=== PATIENT | male | born 1965 | race Caucasian/White ===

== ENCOUNTER 2019-11-25 19:31 | Inpatient (IN) | payer MEDICARE ==
--- NOTE | 2019-11-25 22:00 | XRay Report ---
Chest single view INDICATION: Dyspnea IMPRESSION: No acute cardiopulmonary abnormality. Signer Name: Ed Noriega MD Signed: 11/25/2019 9:55 PM Workstation Name: [id number]
[2019-11-25 22:23] LABS: Basophils # (Auto) 0.1 K/mm3 (0.0-0.1); Basophils % (Auto) 0.8 % (0.0-1.8); Eosinophils # (Auto) 0.6 K/mm3 (0.0-0.4); Eosinophils % (Auto) 6.3 % (0.0-4.3); Hematocrit 38.7 % (35.5-45.6); Hemoglobin 13.3 gm/dl (11.8-15.2); Lymphocytes # (Auto) 2.5 K/mm3 (1.2-5.4); Lymphocytes % (Auto) 24.3 % (13.4-35.0); Mean Corpuscular HGB Conc 34 % (32-34); Mean Corpuscular Volume 88 fl (84-94); Monocytes # (Auto) 0.4 K/mm3 (0.0-0.8); Monocytes % (Auto) 4.1 % (0.0-7.3); Platelet Count 241 K/mm3 (140-440); Red Blood Count 4.41 M/mm3 (3.65-5.03); Red Cell Distribution Width 14.1 % (13.2-15.2)
[2019-11-25 22:42] LABS: Calcium 10.3 mg/dL (8.4-10.2)
[2019-11-25] MEDS ORDERED: MECLIZINE 25 MG TAB PO ONE (23:28)
[2019-11-25] MEDS ORDERED: ONDANSETRON 4 MG ODT TAB PO ONE (23:28)
--- NOTE | 2019-11-25 23:44 | Emergency Department Report ---
ED General Adult HPI - General Chief complaint: Dizziness Stated complaint: DIZZINESS/JULIANN Time Seen by Provider: 11/25/19 22:53 Source: patient, EMS Mode of arrival: Wheelchair Limitations: Physical Limitation - History of Present Illness Initial comments: 54 yo male with a past medical history of previous CVA, hypertension, "heart problems", and chronic neuropathy causing him to require wheelchair assistance presents to the hospital with complaints of dizziness and shortness of breath. Patient is homeless. Pt is visiting from [place] because he wanted to check out [place]. He Arrived via bus several days ago. Patient states he has been short of breath for weeks but worse the last several days. Shortness of breath with movement reported. Patient also complains of ongoing dizziness described as a spinning sensation since his last stroke one month ago. States that the spinning is also getting worse with nausea. No vomiting reported. No pain reported. No hx of PE, DVT or MD/stent placement. Pt denies kidney issues. Patient is not currently taking any medications. Severity scale (0 -10): 0 - Related Data Allergies Allergy/AdvReac Type Severity Reaction Status Date / Time No Known Allergies Allergy Unverified 11/25/19 20:20 ED Review of Systems ROS: Stated complaint: DIZZINESS/JULIANN Other details as noted in HPI Comment: All other systems reviewed and negative ED Past Medical Hx - Past Medical History Previous Medical History?: Yes Hx Hypertension: Yes Hx CVA: Yes (x 2) Additional medical history: "Heart problems" Neuropathy in legs and feet that makes him immobile - Social History Smoking Status: Current Every Day Smoker Substance Use Type: None ED Physical Exam - General Limitations: Physical Limitation - Other Other exam information: General: No limitations, patient is alert in no acute distress Head exam: Atraumatic, normocephalic Eyes exam: Normal appearance, extraocular movements intact lateral visual chand intact. Bilateral lateral gaze nystagmus ENT: Moist mucous membrane Neck exam: Normal inspection, full range of motion Respiratory exam: Clear to auscultation bilateral, no wheezes, rales, crackles Cardiovascular: Normal rate and rhythm Abdomen: Soft, nondistended, and nontender, with normal bowel sounds, no rebound, or guarding, Extremity: No deformity, no calf tenderness or unilateral leg edema Back: Normal Inspection Neurologic: Alert, oriented x3, speech clear, 5/5 upper extremity strength. 5/5 hip flexor strength. Equal sensation bilaterally but decreased sensation at the feet. [id number] function intact equal bilateral Psychiatric: Normal mood, affect ED Course Vital Signs 11/25/19 20:43 Temperature 98.9 F Pulse Rate 95 H Respiratory 20 Rate Blood Pressure 187/106 [Left] O2 Sat by Pulse 98 Oximetry ED Medical Decision Making - Lab Data Result diagrams: 11/25/19 22:02 11/25/19 22:02 Lab Results 11/25/19 11/25/19 11/26/19 Range/Units 22:02 22: 00:03 WBC 10.2 (4.5-11.0) K/mm3 RBC 4.41 (3.65-5.03) M/mm3 Hgb 13.3 (11.8-15.2) gm/dl Hct 38.7 (35.5-45.6) % MCV 88 (84-94) fl MCH 30 (28-32) pg MCHC 34 (32-34) % RDW 14.1 (13.2-15.2) % Plt Count 241 (140-440) K/mm3 Lymph % (Auto) 24.3 (13.4-35.0) % [place] % (Auto) 4.1 (0.0-7.3) % Eos % (Auto) 6.3 H (0.0-4.3) % Baso % (Auto) 0.8 (0.0-1.8) % Lymph # 2.5 (1.2-5.4) K/mm3 [place] # 0.4 (0.0-0.8) K/mm3 Eos # 0.6 H (0.0-0.4) K/mm3 Baso # 0.1 (0.0-0.1) K/mm3 Seg Neutrophils % 64.5 (40.0-70.0) % Seg Neutrophils # 6.6 (1.8-7.7) K/mm3 D-Dimer 356.08 H (0-234) ng/mlDDU Sodium 138 (137-145) mmol/L Potassium 4.2 (3.6-5.0) mmol/L Chloride 99.5 (98-107) mmol/L Carbon Dioxide 23 (22-30) mmol/L Anion Gap 20 mmol/L BUN 44 H (9-20) mg/dL Creatinine 4.5 H (0.8-1.5) mg/dL Estimated GFR 14 ml/min BUN/Creatinine Ratio 10 % Glucose 180 H (75-100) mg/dL Calcium 10.3 H (8.4-10.2) mg/dL Total Bilirubin 0.20 (0.1-1.2) mg/dL AST 12 (5-40) units/L ALT 5 L (7-56) units/L Alkaline Phosphatase 121 (35-129) units/L Total Protein 7.5 (6.3-8.2) g/dL Albumin 4.0 (3.9-5) g/dL Albumin/Globulin Ratio 1.1 % - EKG Data -: EKG Interpreted by Nm EKG shows normal: sinus rhythm, ST-T waves (no stemi) Rate: normal (99) - Radiology Data Radiology results: report reviewed Chest single view INDICATION: Dyspnea IMPRESSION: No acute cardiopulmonary abnormality. CT head without contrast HISTORY: dizziness/vertigo, hx of cva. TECHNIQUE: Axial imaging performed from the skull apex through the skull base without the use of contrast. All CT scans at this location are performed using CT dose reduction for ALARA by means of automated exposure control. COMPARISON: None FINDINGS: Parenchyma: No acute intracranial hemorrhage or parenchymal abnormality. There is a well-defined area of low-attenuation in the left cerebellum suggesting subacute to chronic infarct. Ventricles: There is mild diffuse brain atrophy with commensurate ventricular enlargement which is likely age appropriate. Soft tissues: Soft tissues including the orbits appear normal. Bones: No acute osseous abnormality. Sinuses: Sinuses and mastoid air cells are clear. IMPRESSION: No acute abnormality. V/Q Scan HISTORY: sob, elevated ddimer. TECHNIQUE: Patient was given 3 mCi of technetium MAA and 22.7 mCi of xenon-133. COMPARISON: Chest x-ray from yesterday FINDINGS: No mismatch between ventilation and perfusion imaging. IMPRESSION: Low probability for PTE. - Medical Decision Making Patient has noted to have renal insufficiency without acid-base disturbance or hyperkalemia but insists that he does not have a known history of renal failure despite recent hospitalization last month. NS IV ordered for hydration. Pt states he is not on any meds currently despite his chronic medical problems. Pt received meclizine for vertigo sx but pt states sx unchanged. ct head unremarkable. Elevated ddimer with sob reported (normal pulse ox and not tachypnea) VQ scan low prob for PE and cxr neg. I suspect that renal failure and neuro sx are chronic but I can not confirm via medical records at this time. Case d/w with hospitalist to admit - Differential Diagnosis vertigo, CVA, PE, anemia, reactive airway disease Critical Care Time: No Critical care attestation.: If time is entered above; I have spent that time in minutes in the direct care of this critically ill patient, excluding procedure time. ED Disposition Clinical Impression: Vertigo, Renal insufficiency, Uncontrolled hypertension, Wheelchair dependent, Neuropathy Disposition: OP ADMIT IP TO THIS HOSP Is pt being admited?: Yes Condition: Stable Time of Disposition: 02:53 (Dr Colon/hosp)
--- NOTE | 2019-11-26 00:02 | Cat Scan Report ---
CT head without contrast HISTORY: dizziness/vertigo, hx of cva. TECHNIQUE: Axial imaging performed from the skull apex through the skull base without the use of con trast. All CT scans at this location are performed using CT dose reduction for ALARA by means of aut omated exposure control. COMPARISON: None FINDINGS: Parenchyma: No acute intracranial hemorrhage or parenchymal abnormality. There is a well-defined are a of low-attenuation in the left cerebellum suggesting subacute to chronic infarct. Ventricles: There is mild diffuse brain atrophy with commensurate ventricular enlargement which is l ikely age appropriate. Soft tissues: Soft tissues including the orbits appear normal. Bones: No acute osseous abnormality. Sinuses: Sinuses and mastoid air cells are clear. IMPRESSION: No acute abnormality. Signer Name: Pb Ayers MD Signed: 11/25/2019 11:58 PM Workstation Name: [id number]
[2019-11-26] MEDS ORDERED: SODIUM CHLORIDE 0.9% 1000 ML 1,000 ML IV ONE ×2 (02:37→09:38)
--- NOTE | 2019-11-26 02:44 | Nuclear Medicine Report ---
V/Q Scan HISTORY: sob, elevated ddimer. TECHNIQUE: Patient was given 3 mCi of technetium MAA and 22.7 mCi of xenon-133. COMPARISON: Chest x-ray from yesterday FINDINGS: No mismatch between ventilation and perfusion imaging. IMPRESSION: Low probability for PTE. Signer Name: Pb Ayers MD Signed: 11/26/2019 2:40 AM Workstation Name: [id number]
[2019-11-26] MEDS ORDERED: ONDANSETRON 4 MG ODT TAB ONE (03:04)
[2019-11-26] MEDS ORDERED: MECLIZINE 25 MG TAB ONE (03:04)
[2019-11-26] MEDS ORDERED: ACETAMINOPHEN 325 MG TAB PO PRN (03:25)
[2019-11-26] MEDS ORDERED: ONDANSETRON 4 MG/2 ML INJ IV PRN (03:25)
--- NOTE | 2019-11-26 03:25 | History and Physical Report ---
History of Present Illness History of present illness: 54-year-old man with a history of hypertension, CVA, chronic neuropathy and he is wheelchair-bound comes emergency room with complaints of shortness of breath x3 days. He stated short of breath all the time, especially with activity. He has been having dizziness since the last stroke which is more than a month ago. As recent travel from [place], he is homeless. Patient has been admitted for acute renal failure Review of systems Constitutional: no fever, no chills, no weight loss Ears, eyes, nose, mouth and throat: no nasal congestion, no nasal discharge, no sinus pressure, no vision change, no red eye. Neck: No neck pain or rigidity. Cardiovascular: no orthopnea, palpitations, no leg swelling Respiratory: No cough, no congestion, no wheezing Gastrointestinal: abdominal pain, hematochezia Genitourinary : no dysuria, frequency , no hematuria Musculoskeletal: no joint swelling or muscle ache Integumentary: no rash, no pruritis Neurological: no parathesias, no numbness, no focal weakness Endocrine: no cold or heat intolerance, no polyuria or polydipsia Hematologic/Lymphatic: no easy bruising, no easy bleeding, no gland swelling Allergic/Immunologic: no urticaria, no angioedema. PAST MEDICAL HISTORY: CVA, chronic neuropathy, hypertension PAST SURGICAL HISTORY: None SOCIAL HISTORY: Denies alcohol, tobacco, smoke a pack in couple days FAMILY HISTORY: Hypertension, diabetes Medications and Allergies Allergies Allergy/AdvReac Type Severity Reaction Status Date / Time No Known Allergies Allergy Verified 11/26/19 03:05 Active Meds: Active Medications Enoxaparin Sodium (Enoxaparin) 30 mg SUB-Q QDAY USAMA Sodium Chloride (Nacl 0.9% 1000 Ml) 1,000 mls @ 250 mls/hr IV ONCE ONE Stop: 11/26/19 06:36 Last Admin: 11/26/19 03:01 Dose: 250 mls/hr Documented by: Exam - Physical Exam Narrative exam: Gen. appearance: Patient lying in bed, no apparent distress HEENT: Normocephalic, atraumatic, pupils equally round and reactive to light, eyes are , extraocular movement intact, and no sclericterus,. No JVD or thyromegaly or nodule,neck supple, no carotid bruit ,mucous membranes moist, no exudate or erythema Heart: S1, S2, regular rate and rhythm Lungs: Clear bilaterally, breathing comfortable Abdomen: Positive bowel sounds, non-tender, nondistended, no organomegaly Extremity:no edema cyanosis, clubbing Skin: no rash, dry, warm Neuro: Cranial nerves 2-12 intact, motor and sensory intact - Constitutional Vitals: Temp Pulse Resp BP Pulse Ox 98.9 F 81 18 182/106 97 11/26/19 02:55 11/26/19 02:55 11/26/19 02:55 11/26/19 02:55 11/26/19 02:55 Results - Labs CBC & Chem 7: 11/25/19 22:02 11/25/19 22:02 Labs: Abnormal lab results 11/25/19 11/25/19 11/26/19 Range/Units 22:02 22:02 00:03 Eos % (Auto) 6.3 H (0.0-4.3) % Eos # 0.6 H (0.0-0.4) K/mm3 D-Dimer 356.08 H (0-234) ng/mlDDU BUN 44 H (9-20) mg/dL Creatinine 4.5 H (0.8-1.5) mg/dL Glucose 180 H (75-100) mg/dL Calcium 10.3 H (8.4-10.2) mg/dL ALT 5 L (7-56) units/L - Imaging and Cardiology EKG: image reviewed Chest x-ray: report reviewed CT Scan - head: report reviewed Assessment and Plan VQ low probability Assessment Acute renal failure Start IV fluid, check ultrasound of the kidneys, consult renal Patient denies previous renal history Shortness of breath Check cardiac enzymes, echo, consult cardiology Hypertension, stable Continue appropriate outpatient medications CVA, chronic neuropathy Stable Consult social services technician for placement
[2019-11-26] MEDS ORDERED: SODIUM CHLORIDE 0.45% 1000 ML 1,000 ML IV SCH (04:00)
[2019-11-26 04:13] LABS: Creatine Kinase MB 2.4 ng/mL (0.0-4.0)
--- NOTE | 2019-11-26 04:36 | Ultrasound Report ---
ULTRASOUND RENAL INDICATION / CLINICAL INFORMATION: arf. COMPARISON: None available. FINDINGS: RIGHT KIDNEY: Length = 12.3 cm. [normal > 9 cm] - Parenchymal Thickness = 1.9 cm. [normal > 1.5 cm] - Echogenicity: Normal. - Hydronephrosis: None. - Cyst or mass: No significant abnormality. - Stones: None seen. LEFT KIDNEY: Length = 12.1 cm. [normal > 9 cm] - Parenchymal Thickness = 1.7 cm. [normal > 1.5 cm] - Echogenicity: Normal. - Hydronephrosis: None. - Cyst or mass: No significant abnormality. - Stones: None seen. URINARY BLADDER: No significant abnormality. FREE FLUID: None. ADDITIONAL FINDINGS: None. IMPRESSION: 1. No significant abnormality. Signer Name: Pb Ayers MD Signed: 11/26/2019 4:32 AM Workstation Name: [id number]
[2019-11-26 04:47] LABS: Chol/HDL Ratio 4.16 %
[2019-11-26 08:30] LABS: Basophils # (Auto) 0.1 K/mm3 (0.0-0.1); Basophils % (Auto) 0.6 % (0.0-1.8); Eosinophils # (Auto) 0.7 K/mm3 (0.0-0.4); Eosinophils % (Auto) 8.1 % (0.0-4.3); Lymphocytes % (Auto) 35.4 % (13.4-35.0); Mean Corpuscular HGB Conc 35 % (32-34); Mean Corpuscular Volume 89 fl (84-94); Monocytes # (Auto) 0.6 K/mm3 (0.0-0.8); Monocytes % (Auto) 7.2 % (0.0-7.3); Platelet Count 216 K/mm3 (140-440); Red Blood Count 4.17 M/mm3 (3.65-5.03); Red Cell Distribution Width 14.3 % (13.2-15.2)
[2019-11-26 08:46] LABS: Creatine Kinase MB 2.5 ng/mL (0.0-4.0)
[2019-11-26 08:52] LABS: Calcium 9.6 mg/dL (8.4-10.2)
[2019-11-26] MEDS ORDERED: SODIUM CHLORIDE 0.9% 1000 ML 1,000 ML ONE (10:15)
[2019-11-26] MEDS: ENOXAPARIN 30 MG/0.3 ML INJ SUB-Q SCH (11:05)
--- NOTE | 2019-11-26 11:11 | Consultation ---
History of Present Illness - Reason for Consult end stage renal disease - History of Present Illness 54-year-old with no medical history here from [place] apparently homeless presented to the emergency room with complaint of shortness of breath and dizziness denies any known previous history of kidney disease denies any decreased urine output denies any fevers chills abdominal pain. Patient's lab significant for elevated creatinine Medications and Allergies Allergies Allergy/AdvReac Type Severity Reaction Status Date / Time No Known Allergies Allergy Verified 11/26/19 03:05 Active Meds: Active Medications Acetaminophen (Tylenol) 650 mg PO Q4H PRN PRN Reason: Pain MILD(1-3)/Fever >100.5/SAEZ Enoxaparin Sodium (Enoxaparin) 30 mg SUB-Q QDAY USAMA Sodium Chloride (Nacl 0.45% 1000 Ml) 1,000 mls @ 150 mls/hr IV DIRECT USAMA Sodium Chloride (Nacl 0.9% 1000 Ml) 1,000 mls @ 150 mls/hr IV ONCE ONE Stop: 11/26/19 16:17 Last Admin: 11/26/19 10:22 Dose: 150 mls/hr Documented by: Ondansetron HCl (Zofran) 4 mg IV Q8H PRN PRN Reason: Nausea And Vomiting Sodium Chloride (Sodium Chloride Flush Syringe 10 Ml) 10 ml IV BID USAMA Sodium Chloride (Sodium Chloride Flush Syringe 10 Ml) 10 ml IV PRN PRN PRN Reason: LINE FLUSH Review of Systems Constitutional: no weight loss, no weight gain, no fever, no chills Ears, nose, mouth and throat: no deferred, no ear pain, no ear discharge Cardiovascular: shortness of breath, no chest pain, no orthopnea, no palpitations Respiratory: no cough, no cough with sputum Gastrointestinal: no abdominal pain, no nausea, no vomiting Genitourinary Male: no dysuria, no hematuria Rectal: no pain, no incontinence Musculoskeletal: no neck stiffness, no neck pain Integumentary: no rash Neurological: no head injury, no transient paralysis Psychiatric: no anxiety, no memory loss Endocrine: no cold intolerance, no heat intolerance Hematologic/Lymphatic: no easy bruising, no easy bleeding Exam - Vital Signs Vital signs: Vital Signs Temp Pulse Resp BP Pulse Ox 98.9 F 95 H 20 187/106 98 11/25/19 20:43 11/25/19 20:43 11/25/19 20:43 11/25/19 20:43 11/25/19 20:43 - General Appearance General appearance: well-developed, well-nourished EENT: ATNC, PERRL Neck: Present: neck supple Respiratory: Clear to Ascultation Heart: regular, S1S2 Gastrointestinal: Present: normal, normoactive bowel sounds Integumentary: no rash Neurologic: no focal deficit, CN 3-12 intact Musculoskeletal: Present: deferred Psychiatric: mood/affect appropriate Results - Lab Results 11/26/19 08:19 11/26/19 08:19 Most recent lab results Calcium 9.6 mg/dL (8.4-10.2) 11/26/19 08:19 - Image Kidney/bladder ultrasound: other (i reviewed renal ultrasound normal-sized kidney) Assessment and Plan - Patient Problems (1) Acute kidney injury Current Visit: Yes Status: Acute Plan to address problem: acute kidney injury Baseline creatinine unknown I reviewed renal ultrasound normal-sized kidneys Etiology secondary to volume depletion However likely has nderlying chronic kidney disease given uncontrolled hypertension we'll initiate fluids Will obtain serologies avoid nephrotoxic medications (2) Uncontrolled hypertension Current Visit: Yes Status: Acute Plan to address problem: uncontrolled hypertension Oral antihypertensive medications (3) Metabolic acidosis Current Visit: Yes Status: Acute Plan to address problem: metabolic acidosis in the setting of acute kidney injury we'll add sodium bicarbonate (4) Dyspnea Current Visit: Yes Status: Acute Plan to address problem: I agree with obtaining echocardiogram Chest x-ray without pulmonary edema
--- NOTE | 2019-11-26 11:57 | Consultation ---
History of Present Illness Consult date: 11/26/19 Requesting physician: CARTER MARCANO Consult reason: congestive heart failure History of present illness: The pt is a 54 yo male with a past medical history of previous CVA, hypertension, "heart problems", and chronic neuropathy causing him to require wheelchair. He presented with c/o dizziness and shortness of breath. Patient is currently homeless. Pt is visiting from [place] because he wanted to check out [place]. He arrived via bus several days ago. Patient states he has been short of breath for weeks but worse the last several days. Shortness of breath with movement reported. Patient also complains of ongoing dizziness described as a spinning sensation since his last stroke one month ago. States that the spinning is also getting worse with nausea. No vomiting reported. No pain reported. No hx of PE, DVT or LA/stent placement. Pt denies kidney issues. Patient is not currently taking any medications. Pt does report that he has not been eating or drinking much in the past few days and believes he is dehydrated. Past History Past Medical History: hypertension, stroke Medications and Allergies Allergies Allergy/AdvReac Type Severity Reaction Status Date / Time No Known Allergies Allergy Verified 11/26/19 03:05 Active Meds: Active Medications Acetaminophen (Tylenol) 650 mg PO Q4H PRN PRN Reason: Pain MILD(1-3)/Fever >100.5/SAEZ Enoxaparin Sodium (Enoxaparin) 30 mg SUB-Q QDAY USAMA Sodium Chloride (Nacl 0.45% 1000 Ml) 1,000 mls @ 150 mls/hr IV DIRECT USAMA Sodium Chloride (Nacl 0.9% 1000 Ml) 1,000 mls @ 150 mls/hr IV ONCE ONE Stop: 11/26/19 16:17 Last Admin: 11/26/19 10:22 Dose: 150 mls/hr Documented by: Ondansetron HCl (Zofran) 4 mg IV Q8H PRN PRN Reason: Nausea And Vomiting Sodium Bicarbonate (Sodium Bicarbonate) 1,300 mg PO BID USAMA Sodium Chloride (Sodium Chloride Flush Syringe 10 Ml) 10 ml IV BID USAMA Sodium Chloride (Sodium Chloride Flush Syringe 10 Ml) 10 ml IV PRN PRN PRN Reason: LINE FLUSH Review of Systems Constitutional: no weight loss, no weight gain, no fever, no chills, no sweats Ears, nose, mouth and throat: no ear pain, no nose pain, no sinus pressure, no sinus pain Cardiovascular: lightheadedness, high blood pressure, no chest pain, no orthopnea, no palpitations, no rapid/irregular heart beat, no edema, no syncope, no shortness of breath, no dyspnea on exertion, no leg edema Respiratory: no cough, no shortness of breath, no congestion, no wheezing, no pain on inspiration Gastrointestinal: no abdominal pain, no nausea, no vomiting, no diarrhea, no constipation, no change in bowel habits Genitourinary Male: no dysuria, no hematuria, no flank pain, no discharge, no urinary frequency, no urinary hesitancy Musculoskeletal: no neck stiffness, no neck pain, no shooting arm pain, no arm numbness/tingling, no low back pain Integumentary: no rash, no pruritis, no redness, no sores, no wounds Neurological: no head injury, no paralysis, no weakness, no parathesias, no numbness, no tingling, no seizures, no syncope Psychiatric: no anxiety Endocrine: no cold intolerance, no heat intolerance Hematologic/Lymphatic: no easy bruising, no easy bleeding Allergic/Immunologic: no urticaria Physical Examination Vital Signs Temp Pulse Resp BP Pulse Ox 98.9 F 95 H 20 187/106 98 11/25/19 20:43 11/25/19 20:43 11/25/19 20:43 11/25/19 20:43 11/25/19 20:43 General appearance: no acute distress HEENT: Positive: PERRL, Normocephaly, Mucus Membranes Moist Neck: Positive: neck supple, trachea midline Cardiac: Positive: Reg Rate and Rhythm, S1/S2 Lungs: Positive: Decreased Breath Sounds Neuro: Positive: Grossly Intact Abdomen: Negative: Tender Skin: Negative: Rash Musculoskeletal: No Pain Extremities: Absent: edema Results 11/26/19 08:19 11/26/19 08:19 Cardiac Enzymes 11/25/19 11/26/19 11/26/19 Range/Units 22:02 03:41 08:19 AST 12 (5-40) units/L CK-MB (CK-2) 2.4 2.5 (0.0-4.0) ng/mL Lipids 11/26/19 Range/Units 03:41 Triglycerides 175 H (2-149) mg/dL Cholesterol 125 (50-199) mg/dL HDL Cholesterol 30 L (40-59) mg/dL Cholesterol/HDL Ratio 4.16 % CBC 11/25/19 11/26/19 Range/Units 22:02 08:19 WBC 10.2 8.4 (4.5-11.0) K/mm3 RBC 4.41 4.17 (3.65-5.03) M/mm3 Hgb 13.3 13.0 (11.8-15.2) gm/dl Hct 38.7 37.0 (35.5-45.6) % Plt Count 241 216 (140-440) K/mm3 Lymph # 2.5 3.0 (1.2-5.4) K/mm3 [place] # 0.4 0.6 (0.0-0.8) K/mm3 Eos # 0.6 H 0.7 H (0.0-0.4) K/mm3 Baso # 0.1 0.1 (0.0-0.1) K/mm3 Comprehensive Metabolic Panel 11/25/19 11/26/19 Range/Units 22:02 08:19 Sodium 138 143 (137-145) mmol/L Potassium 4.2 4.2 (3.6-5.0) mmol/L Chloride 99.5 107.0 (98-107) mmol/L Carbon Dioxide 23 20 L (22-30) mmol/L BUN 44 H 43 H (9-20) mg/dL Creatinine 4.5 H 4.1 H (0.8-1.5) mg/dL Glucose 180 H 107 H (75-100) mg/dL Calcium 10.3 H 9.6 (8.4-10.2) mg/dL AST 12 (5-40) units/L ALT 5 L (7-56) units/L Alkaline Phosphatase 121 (35-129) units/L Total Protein 7.5 (6.3-8.2) g/dL Albumin 4.0 (3.9-5) g/dL - Imaging and Cardiology Echo: pending EKG: report reviewed, image reviewed EKG interpretations - Telemetry EKG Rhythm: Sinus Rhythm - EKG Sinus rhythms and dysrhythmias: sinus rhythm Assessment and Plan DDimer elevated - V/Q scan low prob for PE. Head CT with NAF. No apparent clinical evidence of acutely decompensated HF. Agree with IVF in setting of renal insufficiency. Nephrology consultation pending. Obtain echo and orthostatics. Optimize anti-hypertensive regimen. Will follow. The patient has been seen in conjunction with Dr. Kumar who agrees with the assessment and plan of care. - Patient Problems (1) Dyspnea Current Visit: Yes Status: Acute (2) Vertigo Current Visit: Yes Status: Suspected (3) Renal insufficiency Current Visit: Yes Status: Acute (4) Dehydration Current Visit: Yes Status: Acute (5) Uncontrolled hypertension Current Visit: Yes Status: Chronic (6) History of CVA (cerebrovascular accident) Current Visit: Yes Status: Chronic (7) Neuropathy Current Visit: Yes Status: Chronic (8) Wheelchair dependent Current Visit: Yes Status: Chronic
[2019-11-26] MEDS: SODIUM BICARBONATE 650 MG TAB PO SCH ×2 (12:34→21:03)
[2019-11-26] MEDS ORDERED: METOPROLOL SUCCINATE XL 50 MG TAB PO SCH (13:00)
--- NOTE | 2019-11-26 16:40 | Event Note ---
Date: 11/26/19 54-year-old male patient with history of hypertension CVA chronic neuropathy wheelchair bound was admitted through emergency room with worsening shortness of breath of 3 days' durationPatient was noted to have acute kidney injury fluid overload and shortness of breath, evaluated by cardiology and nephrology in consultation Patient's chart and medications reviewed, agree with the current management VQ scan low probability for PE, check lower extremity venous Doppler to rule out DVT Closely monitor and adjust management as needed Plan of care is reviewed with the patient and his nurse
[2019-11-26] MEDS ORDERED: hydrALAZINE 20 MG/1 ML INJ IV PRN (20:56)
[2019-11-27 06:25] LABS: Calcium 8.6 mg/dL (8.4-10.2)
[2019-11-27] MEDS ORDERED: SODIUM CHLORIDE 0.9% 1000 ML 1,000 ML IV SCH (09:00)
[2019-11-27] MEDS ORDERED: METOPROLOL SUCCINATE XL 50 MG TAB PO SCH (09:17)
[2019-11-27] MEDS: ENOXAPARIN 30 MG/0.3 ML INJ SUB-Q SCH (09:18)
[2019-11-27] MEDS: SODIUM BICARBONATE 650 MG TAB PO SCH (09:19)
[2019-11-27] MEDS ORDERED: amLODIPine 10 MG TAB PO SCH (10:00)
[2019-11-27] MEDS ORDERED: METOPROLOL SUCCINATE XL 100 MG TAB PO SCH (10:00)
--- NOTE | 2019-11-27 10:34 | XRay Report ---
CHEST 1 VIEW INDICATION: Acute kidney injury. COMPARISON: 11/25/2019 FINDINGS: Support devices: None. Heart: Within normal limits. Lungs/Pleura: No acute air space or interstitial disease. Additional findings: None. IMPRESSION: No acute findings. Signer Name: Chin Reeevs Jr, MD Signed: 11/27/2019 10:29 AM Workstation Name: [id number]
[2019-11-27 10:44] VITALS: BP 186/97
--- NOTE | 2019-11-27 12:35 | Vascular Lab Report ---
DUPLEX DOPPLER LOWER EXTREMITY VEINS, BILATERAL INDICATION: elevated D dimers, evaluate for DVT. TECHNIQUE: Duplex doppler imaging was performed through the veins of both lower extremities using ve nous compression and other maneuvers. COMPARISON: No relevant prior imaging study available. FINDINGS: Right Common femoral vein: Negative. Right Superficial femoral vein: Negative. Right Popliteal vein: Negative. Right Calf veins: Negative. Left Common femoral vein: Negative. Left Superficial femoral vein: Negative. Left Popliteal vein: Negative. Left Calf veins: Negative. Additional findings: None.. IMPRESSION: No sonographic evidence for DVT in either lower extremity. Signer Name: Chin Reeves Jr, MD Signed: 11/27/2019 12:31 PM Workstation Name: [id number]
[2019-11-27 13:08] LABS: Bacteria,Urine 1+ /HPF (Negative); Bilirubin,Urine NEG (Negative); Blood,Urine NEG (Negative); Color,Urine Yellow (Yellow); Mucus,Urine FEW /HPF; Urobilinogen,Urine < 2.0 mg/dL (<2.0)
--- NOTE | 2019-11-27 13:18 | Progress Note ---
Assessment and Plan DDimer elevated - V/Q scan low prob for PE. Head CT with NAF. No apparent clinical evidence of acutely decompensated HF. Agree with IVF in setting of renal insufficiency. Nephrology following. Await echo. Obtain orthostatics. Optimize anti-hypertensive regimen - increase Toprol and initiate amlodipine. The patient has been seen in conjunction with Dr. Kumar who agrees with the assessment and plan of care. - Patient Problems (1) Dyspnea Current Visit: Yes Status: Acute (2) Dizziness Current Visit: Yes Status: Acute (3) Renal insufficiency Current Visit: Yes Status: Acute (4) Dehydration Current Visit: Yes Status: Acute (5) Uncontrolled hypertension Current Visit: Yes Status: Chronic (6) History of CVA (cerebrovascular accident) Current Visit: Yes Status: Chronic (7) Neuropathy Current Visit: Yes Status: Chronic (8) Wheelchair dependent Current Visit: Yes Status: Chronic Subjective Date of service: 11/27/19 Principal diagnosis: dyspnea, dizziness Interval history: pt still with c/o dizziness and SOB. in SR on tele, no acute events overnight. Objective Last Vital Signs Temp 97.8 F 11/27/19 03:32 Pulse 84 11/27/19 10:43 Resp 18 11/27/19 03:32 BP 186/97 11/27/19 10:43 Pulse Ox 97 11/27/19 08:51 - Physical Examination General: No Apparent Distress HEENT: Positive: PERRL, Normocephaly, Mucus Membranes Moist Neck: Positive: neck supple, trachea midline Cardiac: Positive: Reg Rate and Rhythm, S1/S2 Lungs: Positive: Decreased Breath Sounds Neuro: Positive: Grossly Intact Abdomen: Negative: Tender Skin: Negative: Rash Musculoskeletal: No Pain Extremities: Absent: edema - Labs and Meds Comprehensive Metabolic Panel 11/27/19 Range/Units 05:16 Sodium 142 (137-145) mmol/L Potassium 3.9 (3.6-5.0) mmol/L Chloride 108.6 H (98-107) mmol/L Carbon Dioxide 21 L (22-30) mmol/L BUN 36 H (9-20) mg/dL Creatinine 4.1 H (0.8-1.5) mg/dL Glucose 117 H (75-100) mg/dL Calcium 8.6 (8.4-10.2) mg/dL - Imaging and Cardiology EKG: report reviewed, image reviewed Echo: pending - Telemetry EKG Rhythm: Sinus Rhythm - EKG Sinus rhythms and dysrhythmias: sinus rhythm
--- NOTE | 2019-11-27 15:32 | Discharge Summary ---
Providers - Providers Date of Admission: 11/26/19 03:14 Attending physician: JASIEL RICHARDS 11/26/19 03:25 Consult to Physician [CONS] Routine Comment: Consulting Provider: THERESA ALTMAN Physician Instructions: Reason For Exam: arf 11/26/19 03:29 Consult to Physician [CONS] Routine Comment: Consulting Provider: CHERY RIZVI Physician Instructions: Reason For Exam: sob [facility] Hospital[facility] Condition: Stable Hospital course: --Acute renal failure: Vasomotor nephropathy Start IV fluid, check ultrasound of the kidneys, consult renal Patient denies previous renal history Shortness of breath Check cardiac enzymes, echo, consult cardiology Hypertension, stable Continue appropriate outpatient medications CVA, chronic neuropathy Stable Consult marriage and family social worker for placement Disposition: [id number] LEFT AGAINST MED ADVICE Exam - Constitutional Vitals: Temp Pulse Resp BP Pulse Ox 97.8 F 87 14 186/97 97 11/27/19 03:32 11/27/19 11:00 11/27/19 11:00 11/27/19 10:43 11/27/19 08:51 Plan Follow up with: HANK TINOCO MD [Primary Care Provider] - 3-5 Days Forms: AMA Form
--- NOTE | 2019-11-27 16:19 | Progress Note ---
Assessment and Plan - Patient Problems (1) Acute kidney injury Status: Acute Plan to address problem: acute kidney injury Baseline creatinine unknown Creatinine still remains at 4.1 I reviewed renal ultrasound normal-sized kidneys Etiology secondary to volume depletion However likely has underlying chronic kidney disease given uncontrolled hypertension Continue fluids avoid nephrotoxic medications Patient was counseled regarding significant kidney injury and need for further evaluation he is at risk for needing dialysis if renal function does not improve (2) Uncontrolled hypertension Status: Chronic Plan to address problem: uncontrolled hypertension Oral antihypertensive medications (3) Metabolic acidosis Status: Acute Plan to address problem: metabolic acidosis in the setting of acute kidney injury we'll add sodium bicarbonate (4) Dyspnea Status: Acute Plan to address problem: I agree with obtaining echocardiogram Chest x-ray without pulmonary edema Subjective Principal diagnosis: dyspnea, dizziness Interval history: 54-year-old with no medical history here from [place] apparently homeless presented to the emergency room with complaint of shortness of breath and dizziness denies any known previous history of kidney disease denies any decreased urine output denies any fevers chills abdominal pain. Patient's lab significant for elevated creatinine Patient was seen today Denies any decreased urine output denies any shortness of breath patient was counseled regarding severe renal dysfunction and ongoing evaluation No lower extremity edema Objective - Vital Signs Vital signs: Vital Signs - 12hr 11/27/19 11/27/19 11/27/19 08:51 09:00 10:41 Pulse Rate 82 87 84 Pulse Rate [ Apical] Respiratory Rate Blood Pressure 169/86 186/97 O2 Sat by Pulse 97 Oximetry 11/27/19 11/27/19 10:43 11:00 Pulse Rate 84 Pulse Rate [ 87 Apical] Respiratory 14 Rate Blood Pressure 186/97 O2 Sat by Pulse Oximetry - General Appearance General appearance: well-developed, well-nourished EENT: ATNC, PERRL Neck: no JVD Respiratory: Present: Clear to Ascultation Cardiology: regular, S1S2 Gastrointestinal: normal, normoactive bowel sounds Integumentary: no rash Neurologic: alert and oriented x3, CN 3-12 intact Musculoskeletal: deferred Psychiatric: mood/affect appropriate - Lab 11/26/19 08:19 11/27/19 05:16 Most recent lab results Calcium 8.6 mg/dL (8.4-10.2) 11/27/19 05:16 - Imaging Chest x-ray: image reviewed (review chest x-ray without edema) Medications & Allergies - Medications Allergies/Adverse Reactions: Allergies No Known Allergies Allergy (Verified 11/26/19 03:05)
== END 2019-11-27 13:46 | disposition left against medical advice (07) | DRG 683 ==
LOC: ED 19:31 → 4A 11-26 03:14
PROVIDERS: ADMIT Internal Medicine; ATTEND Internal Medicine
DX: N17.0 Acute kidney failure with tubular necrosis (principal); E87.2 Acidosis; I10 Essential (primary) hypertension; G62.9 Polyneuropathy, unspecified; Z86.73 Personal history of transient ischemic attack (TIA), and cerebral infarction without residual deficits; F17.200 Nicotine dependence, unspecified, uncomplicated; Z99.3 Dependence on wheelchair; Z82.49 Family history of ischemic heart disease and other diseases of the circulatory system; Z83.3 Family history of diabetes mellitus; Z53.29 Procedure and treatment not carried out because of patient's decision for other reasons
CPT/HCPCS: 36415; 70450; 71045; 76770; 78582; 80048; 80053; 80061; 81001; 82550; 82553; 84484; 85025; 85379; 93005; 93010; 93306; 93970; G0378; A9540; A9558; J0360; J1650; J7030; Q0162